=== PATIENT | female | born 1940 | race Caucasian/White ===

== ENCOUNTER 2017-05-20 17:17 | Inpatient (IN) | payer OTHER, MEDICAID ==
[~2017-05-20] VITALS: Ht 152.4 cm; Wt 78.6 kg
--- NOTE | 2017-05-20 17:20 | NUR ---
PATIENT TO BED#2
[2017-05-20 17:21] VITALS: BP 215/98
[2017-05-20] MEDS ORDERED: NITROGLYCERIN 2% 1 GM PKT TP ONE (17:30)
[2017-05-20] MEDS ORDERED: NACL 0.9% 1,000 ML IV ONE (17:30)
[2017-05-20] MEDS ORDERED: ASPIRIN 81 MG TAB.CHEW PO ONE (17:30)
--- NOTE | 2017-05-20 17:30 | NUR ---
76/F biba from home for evaluation of chest pain x2 days. Pt also reports having elevated blood pressure for the past few days. Hx HTN, CVA with right sided weakness. Pt describes pain as sharp, 3/10. AOX4, amharic speaking, VSS.
[2017-05-20] MEDS ORDERED: SPIR50TA PO (17:33)
[2017-05-20] MEDS ORDERED: FURO-570 PO (17:35)
[2017-05-20] MEDS ORDERED: SIMV40TA1 PO (17:35)
[2017-05-20] MEDS ORDERED: METF1000 PO (17:37)
[2017-05-20] MEDS ORDERED: INSU100S22 SUBQ (17:39)
[2017-05-20] MEDS ORDERED: ALBU-118 IH (17:40)
[2017-05-20 17:55] LABS: HEMOGLOBIN 11.6 g/dL (12.0-16.0); MEAN CORPUSCULAR HEMOGLOBIN 25 pg (27-31); MEAN CORPUSCULAR HGB CONC 32 g/dL (33-37); MEAN CORPUSCULAR VOLUME 79 fL (80-94); PLATELET COUNT (AUTO) 348 K/uL (140-450); RED BLOOD CELL COUNT(AUTO) 4.58 MIL/uL (4.20-5.40); RED CELL DISTRIBUTION WIDTH 15.3 % (11.6-13.7); WHITE BLOOD COUNT (AUTO) 8.4 K/uL (4.8-10.8)
[2017-05-20 18:15] LABS: EOSINOPHILS % (MANUAL) 2 % (0-4); LYMPHOCYTES % (MANUAL) 23 % (20-46); MONOCYTES % (MANUAL) 5 % (5-12)
[2017-05-20 18:38] LABS: PROTHROMBIN TIME 10.6 secs (10.8-13.4)
[2017-05-20 18:41] LABS: ALBUMIN 3.5 g/dL (3.4-5.0); ANION GAP 9.7 (8-16); ASPARTATE AMINOTRANSFERASE 20 U/L (15-37); CARBON DIOXIDE 29.3 mmol/L (21-32); CHLORIDE 100 mmol/L (98-107); CREATININE 0.8 mg/dL (0.6-1.3); GLUCOSE 269 mg/dL (74-106); SODIUM SERUM 135 mmol/L (136-145); TOTAL BILIRUBIN 0.2 mg/dL (0.0-1.0); UREA NITROGEN, BLOOD 10 mg/dL (7-18)
[2017-05-20] MEDS ORDERED: ONDANSETRON 4 MG/2 ML VIAL IVP PRN (19:10)
[2017-05-20] MEDS: NACL 0.9% 1,000 ML IV SCH (19:10)
[2017-05-20] MEDS ORDERED: DEXTROSE 50% 50 ML SYR IVP PRN (19:10)
[2017-05-20] MEDS ORDERED: ACETAMINOPHEN 325 MG TAB PO PRN (19:10)
--- NOTE | 2017-05-20 19:22 | NUR ---
Pt report given to Leela AUGUSTE. Transfer of care at this time.
--- NOTE | 2017-05-20 20:00 | NUR ---
Patient will be admitted to care of [facility]. Admited to TELE . Will go to room 108A. Belongings list completed. Report to TORIBIO AUGUSTE. IV PATENT AND INFUSING
[2017-05-20 20:04] LABS: FREE T4 (FREE THYROXINE) 1.06 ng/dL (0.76-1.46); MAGNESIUM 1.8 mg/dL (1.8-2.4); PHOSPHORUS 3.6 mg/dL (2.5-4.9); THYROID STIMULATING HORMONE 2.66 uIU/mL (0.34-3.74)
[2017-05-20 20:08] VITALS: BP 155/89
--- NOTE | 2017-05-20 20:08 | NUR ---
RECEIVED PATIENT FROM ER NURSE. PATIENT A&OX4. PATIENT DENIES PAIN. PATIENT IS [place] SPEAKING, PHP ENGINEER REQUIRED. [employer] PHP ENGINEER NUMBER [id number] JUANA TO HELP WITH ADMISSION. PATIENT DENIES CHEST PAIN. TELE BOX IN PLACE. IV SITE PATENT AND INTACT. NO SIGNS OR SYMPTOMS OF ACUTE DISTRESS NOTED. CALL LIGHT WITHIN REACH. AT BEDSIDE WILL CONTINUE TO MONITOR.
--- NOTE | 2017-05-20 20:32 | NUR ---
DR VIERA IN TO SEE PATIENT.
[2017-05-20] MEDS ORDERED: HYDROcodone/APAP 5/325 MG 1 TAB TAB PO PRN (21:05)
[2017-05-20] MEDS ORDERED: KETOROLAC 15 MG/ML VIAL IVP PRN (21:05)
[2017-05-20] MEDS: INSULIN DETEMIR 100 UNITS/ML 10 ML VIAL SUBQ SCH (21:24)
[2017-05-20] MEDS: DOCUSATE SODIUM 100 MG GELCAP PO SCH (21:26)
[2017-05-20] MEDS: METOPROLOL 25 MG TAB PO SCH (21:26)
[2017-05-20] MEDS: BLOOD GLUCOSE MONITORING 1 DEV DEV FS SCH (21:30)
--- NOTE | 2017-05-20 21:30 | NUR ---
PM MEDS GIVEN WITH EDUCATION. PATIENT VERBALIZED UNDERSTANDING. CALL LIGHT WITHIN REACH. WILL CONTINUE TO MONITOR.
[2017-05-21] VITALS (8 sets, daily range): BP systolic 123–197; BP diastolic 62–94
--- NOTE | 2017-05-21 03:14 | NUR ---
RECEIVED CRITICAL TOPONIN 0.[address] BROWN. WAITING SLOT FLOOR SUPERVISOR BACK FOR FURTHER INSTRUCTION.
--- NOTE | 2017-05-21 03:41 | NUR ---
PAGED DR BROWN FOR CRITICAL LAB. WAITING QUARTER DOPER BACK.
--- NOTE | 2017-05-21 03:59 | NUR ---
INFORMED DR. BROWN ABOUT CRITICAL TROPONIN.
--- NOTE | 2017-05-21 04:30 | NUR ---
INFORMED RESIDENT OF HIGH BP. NO SIGNS OR SYMPTOMS OF ACUTE DISTRESS NOTED. CALL LIGHT WITHIN REACH. WILL CONTINUE TO MONITOR.
[2017-05-21 06:44] LABS: BASOPHILS # (AUTO) 0.1 K/uL (0.00-0.22); BASOPHILS % (AUTO) 1.3 % (0.0-2.0); EOSINOPHILS # (AUTO) 0.2 K/uL (0-0.4); EOSINOPHILS % (AUTO) 2.7 % (0.0-4.0); HEMATOCRIT 35.3 % (36-48); LYMPHOCYTES % (AUTO) 27.8 % (20.5-51.1); MEAN CORPUSCULAR HEMOGLOBIN 25 pg (27-31); MEAN CORPUSCULAR HGB CONC 31 g/dL (33-37); MEAN CORPUSCULAR VOLUME 80 fL (80-94); MONOCYTES # (AUTO) 0.8 K/uL (0.8-1.0); MONOCYTES % (AUTO) 10.9 % (1.7-9.3); NEUTROPHILS # (AUTO) 4.1 K/uL (1.8-7.7); NEUTROPHILS % (AUTO) 57.3 % (42.2-75.2); PLATELET COUNT (AUTO) 358 K/uL (140-450); RED BLOOD CELL COUNT(AUTO) 4.44 MIL/uL (4.20-5.40); RED CELL DISTRIBUTION WIDTH 14.9 % (11.6-13.7); WHITE BLOOD COUNT (AUTO) 7.2 K/uL (4.8-10.8)
[2017-05-21] MEDS: BLOOD GLUCOSE MONITORING 1 DEV DEV FS SCH ×4 (06:56→20:23)
[2017-05-21 07:00] LABS: ANION GAP 11.2 (8-16); CARBON DIOXIDE 27.5 mmol/L (21-32); CHLORIDE 102 mmol/L (98-107); CREATININE 0.7 mg/dL (0.6-1.3); GLUCOSE 160 mg/dL (74-106); POTASSIUM 3.7 mmol/L (3.5-5.1); SODIUM SERUM 137 mmol/L (136-145); UREA NITROGEN, BLOOD 10 mg/dL (7-18)
[2017-05-21 07:08] LABS: CHOL/HDL RATIO 7.3 (1-4.5); MAGNESIUM 1.9 mg/dL (1.8-2.4); PHOSPHORUS 3.9 mg/dL (2.5-4.9)
--- NOTE | 2017-05-21 07:18 | NUR ---
ENDORSED PLAN OF CARE TO AM RN. PATIENT IN STABLE CONDITION.
--- NOTE | 2017-05-21 08:00 | NUR ---
RECEIVED PATIENT ALERT AWAKE ORIENTED X 4, NOT IN ANY DISTRESS NOTED, DENIES CHEST PAIN. INITIAL ASSESSMENT INITIATED. BS CHECKED 121. BP 197/94, PATIENT ASYMPTOMATIC. MD AWARE. NEEDS ATTENDED, CALL LIGHT WITHIN REACH. WILL CONTINUE TO MONITOR.
[2017-05-21] MEDS: SIMVASTATIN 40 MG TAB PO SCH (08:45)
[2017-05-21] MEDS: SPIRONOLACTONE 50 MG TAB PO SCH (08:46)
[2017-05-21] MEDS: PANTOPRAZOLE 40 MG TABEC PO SCH (08:46)
[2017-05-21] MEDS: ECOTRIN 81 MG TABEC PO SCH (08:46)
[2017-05-21] MEDS: ASCORBIC ACID 500 MG TAB PO SCH (08:46)
[2017-05-21] MEDS: FERROUS SULFATE 325 MG TABEC PO SCH (08:47)
[2017-05-21] MEDS: METOPROLOL 25 MG TAB PO SCH ×2 (08:47→20:30)
[2017-05-21] MEDS: FUROSEMIDE 40 MG TAB PO SCH (08:47)
[2017-05-21] MEDS: DOCUSATE SODIUM 100 MG GELCAP PO SCH ×2 (08:47→20:30)
[2017-05-21] MEDS ORDERED: metFORMIN 500 MG TAB PO SCH (09:00)
[2017-05-21] MEDS ORDERED: LISINOPRIL 5 MG TAB PO SCH (09:00)
[2017-05-21] MEDS ORDERED: ATORVASTATIN 20 MG TAB PO SCH (09:00)
--- NOTE | 2017-05-21 09:05 | NUR ---
PATIENT HAS BEEN SCREENED AND CATEGORIZED MODERATE NUTRITION RISK. PATIENT WILL BE SEEN WITHIN 3-5 DAYS OF ADMISSION. 05/22/17-05/24/[address]
[2017-05-21] MEDS: INSULIN LISPRO SLIDING SCALE 100 UNITS/ML VIAL SUBQ PRN ×3 (12:04→21:13)
--- NOTE | 2017-05-21 12:53 | NUR ---
CHECKED BP 196/91 PATIENT ASYMPTOMATIC, NOTIFIED DR. ALFONSO AND MADE AWARE.
[2017-05-21] MEDS ORDERED: hydrALAZINE 20 MG/ML VIAL IVP PRN (12:55)
--- NOTE | 2017-05-21 14:00 | NUR ---
BP CHECKED 123/62, HR-76, O2 SAT ON RA 96. PATIENT VERBALIZED THAT SHE FEELS DIZZY, VITALS STABLE. PAGED DR. ALFONSO.
--- NOTE | 2017-05-21 16:30 | NUR ---
SEEN BY DR. VIERA WITH ORDERS AND CARRIED OUT.
[2017-05-21] MEDS: NACL 0.9% 1,000 ML IV SCH (16:54)
--- NOTE | 2017-05-21 17:50 | NUR ---
RECEIVED REPORT FROM MOLINA SOLORIO, PATIENT RESTING IN BED, AT BEDSIDE. NO S/S OF DISTRESS NOTED, CALL LIGHT WITHIN REACH, SAFETY MEASURE ENSURED, WILL CONTINUE TO MONITOR.
[2017-05-21] MEDS: metFORMIN 500 MG TAB PO SCH (17:59)
[2017-05-21] MEDS: INSULIN DETEMIR 100 UNITS/ML 10 ML VIAL SUBQ SCH (20:32)
--- NOTE | 2017-05-21 20:35 | NUR ---
PATIENT SAID SHE FELT NAUSEOUS, ZOFRAN GIVEN ORDERED. WILL CONTINUE TO MONITOR.
--- NOTE | 2017-05-21 22:10 | NUR ---
PATIENT IS SLEEPING, NO S/S OF DISTRESS NOTED, RESPIRATION EVEN AND UNLABORED, CALL LIGHT WITHIN REACH, SAFETY MEASURE ENSURED, WILL CONTINUE TO MONITOR.
[2017-05-22] VITALS: BP 133/65
[2017-05-22] MEDS ORDERED: BENZOCAINE/MENTHOL 1 LOZ MM PRN (01:05)
--- NOTE | 2017-05-22 01:13 | NUR ---
PATIENT SAID SHE HAD SORE THROAT, CEPACOL ADMINISTERED ORDERED. WILL CONTINUE TO MONITOR.
--- NOTE | 2017-05-22 03:33 | NUR ---
PATIENT IS SLEEPING, NO S/S OF DISTRESS NOTED, RESPIRATION EVEN AND UNLABORED, CALL LIGHT WITHIN REACH, SAFETY MEASURE ENSURED, WILL CONTINUE TO MONITOR.
[2017-05-22 04:00] VITALS: BP 130/70
--- NOTE | 2017-05-22 05:41 | NUR ---
PATIENT RESTING IN BED, NO S/S OF DISTRESS NOTED, RESPIRATION EVEN AND UNLABORED, CALL LIGHT WITHIN REACH, SAFETY MEASURE ENSURED, WILL CONTINUE TO MONITOR.
--- NOTE | 2017-05-22 07:05 | NUR ---
ENDORSED PLAN OF CARE TO DAY SHIFT RN, PATIENT IS IN STABLE CONDITION.
--- NOTE | 2017-05-22 07:06 | NUR ---
RECEIVED REPORT FROM ANGLE DOZER OPERATOR RN. PATIENT IS AAOX4, RESPIRATORY EFFORT EVEN AND UNLABORED. ON ROOM AIR. NO SIGNS AND SYMPTOMS OF DISTRESS NOTED AT THIS TIME. PATIENT HAS IV TO LEFT AC 20G. INFUSING WELL. SITE IS CLEAN, DRY, PATENT AND INTACT. DISCUSSED PLAN OF CARE WITH PATIENT AND SHE VERBALIZED UNDERSTANDING. IS AT THE BEDSIDE. BED IN LOWEST POSITION, SIDE RAILS UP X3, CALL LIGHT PLACED WITHIN REACH. WILL CONTINUE TO MONITOR.
[2017-05-22] MEDS: BLOOD GLUCOSE MONITORING 1 DEV DEV FS SCH ×4 (07:15→20:29)
[2017-05-22 07:26] LABS: CARBON DIOXIDE 28.1 mmol/L (21-32); CHLORIDE 100 mmol/L (98-107); CREATININE 1.1 mg/dL (0.6-1.3); GLUCOSE 127 mg/dL (74-106); POTASSIUM 4.1 mmol/L (3.5-5.1); SODIUM SERUM 139 mmol/L (136-145); UREA NITROGEN, BLOOD 17 mg/dL (7-18)
[2017-05-22 07:35] LABS: BASOPHILS # (AUTO) 0.2 K/uL (0.00-0.22); BASOPHILS % (AUTO) 1.9 % (0.0-2.0); EOSINOPHILS # (AUTO) 0.1 K/uL (0-0.4); EOSINOPHILS % (AUTO) 0.6 % (0.0-4.0); HEMATOCRIT 34.9 % (36-48); HEMOGLOBIN 11.3 g/dL (12.0-16.0); LYMPHOCYTES # (AUTO) 2.6 K/uL (2.5-16.5); LYMPHOCYTES % (AUTO) 22.1 % (20.5-51.1); MEAN CORPUSCULAR HEMOGLOBIN 26 pg (27-31); MEAN CORPUSCULAR HGB CONC 32 g/dL (33-37); MEAN CORPUSCULAR VOLUME 80 fL (80-94); MONOCYTES # (AUTO) 1.2 K/uL (0.8-1.0); MONOCYTES % (AUTO) 9.9 % (1.7-9.3); NEUTROPHILS # (AUTO) 7.7 K/uL (1.8-7.7); NEUTROPHILS % (AUTO) 65.5 % (42.2-75.2); PLATELET COUNT (AUTO) 397 K/uL (140-450); RED BLOOD CELL COUNT(AUTO) 4.36 MIL/uL (4.20-5.40); RED CELL DISTRIBUTION WIDTH 14.8 % (11.6-13.7); WHITE BLOOD COUNT (AUTO) 11.8 K/uL (4.8-10.8)
[2017-05-22 08:00] VITALS: BP 129/60
[2017-05-22] MEDS: FUROSEMIDE 40 MG TAB PO SCH (08:39)
[2017-05-22] MEDS: DOCUSATE SODIUM 100 MG GELCAP PO SCH ×2 (08:40→20:26)
[2017-05-22] MEDS: ECOTRIN 81 MG TABEC PO SCH (08:40)
[2017-05-22] MEDS: SIMVASTATIN 40 MG TAB PO SCH (08:40)
[2017-05-22] MEDS: FERROUS SULFATE 325 MG TABEC PO SCH (08:40)
[2017-05-22] MEDS: PANTOPRAZOLE 40 MG TABEC PO SCH (08:41)
[2017-05-22] MEDS: SPIRONOLACTONE 50 MG TAB PO SCH (08:41)
[2017-05-22] MEDS: ASCORBIC ACID 500 MG TAB PO SCH (08:41)
[2017-05-22] MEDS: metFORMIN 500 MG TAB PO SCH ×2 (08:41→17:34)
[2017-05-22] MEDS: METOPROLOL 25 MG TAB PO SCH ×2 (08:42→20:26)
[2017-05-22] MEDS ORDERED: LISINOPRIL 10 MG TAB PO SCH (09:00)
[2017-05-22 09:15] LABS: FOLIC ACID 15.6 ng/mL (>3.0)
--- NOTE | 2017-05-22 10:40 | NUR ---
PATIENT C/O DIFFICULTY BREATHING. OSMIN EMERGENCY DOCTOR AT BEDSIDE, WELL DR HAWKINS. OSMIN PLACED NC AT 2L ON PATIENT. VITALS ARE BP: 152/70, HR 96, 02 99% ON 2L NC, RR: 20. PATIENT DENIES CHEST PAIN. STATES SHE FEELS BETTER WITH THE OXYGEN ON. ALL MORNING MEDS HAVE BEEN GIVEN ALREADY. WILL CONTINUE TO MONITOR.
[2017-05-22] MEDS: NACL 0.9% 1,000 ML IV SCH (11:10)
[2017-05-22 12:00] VITALS: BP 117/53
[2017-05-22] MEDS: INSULIN LISPRO SLIDING SCALE 100 UNITS/ML VIAL SUBQ PRN ×2 (12:10→17:37)
[2017-05-22 15:06] LABS: BASOPHILS # (AUTO) 0.1 K/uL (0.00-0.22); EOSINOPHILS # (AUTO) 0.1 K/uL (0-0.4); EOSINOPHILS % (AUTO) 0.8 % (0.0-4.0); HEMATOCRIT 34.1 % (36-48); HEMOGLOBIN 10.9 g/dL (12.0-16.0); LYMPHOCYTES # (AUTO) 2.2 K/uL (2.5-16.5); LYMPHOCYTES % (AUTO) 17.4 % (20.5-51.1); MEAN CORPUSCULAR HEMOGLOBIN 25 pg (27-31); MEAN CORPUSCULAR HGB CONC 32 g/dL (33-37); MEAN CORPUSCULAR VOLUME 79 fL (80-94); MONOCYTES # (AUTO) 1.3 K/uL (0.8-1.0); MONOCYTES % (AUTO) 10.8 % (1.7-9.3); NEUTROPHILS # (AUTO) 8.7 K/uL (1.8-7.7); PLATELET COUNT (AUTO) 383 K/uL (140-450); RED BLOOD CELL COUNT(AUTO) 4.29 MIL/uL (4.20-5.40); RED CELL DISTRIBUTION WIDTH 14.5 % (11.6-13.7); WHITE BLOOD COUNT (AUTO) 12.4 K/uL (4.8-10.8)
[2017-05-22 16:00] VITALS: BP 107/70
--- NOTE | 2017-05-22 19:10 | NUR ---
ENDORSED PATIENT TO POLLUTION CONTROL TECHNICIAN RN FOR CONTINUITY OF CARE. PATIENT IN STABLE CONDITION.
--- NOTE | 2017-05-22 19:15 | NUR ---
RECEIVED REPORT FROM DAY RN, PATIENT WAS SLEEPING IN BED, EASY TO AROUSE, NO S/S OF DISTRESS NOTED, RESPIRATION EVEN AND UNLABORED, IV PATENT AND INTACT, FLUSHED WITH 10CC NS. PLAN OF CARE DISCUSSED, PATIENT VERBALIZED UNDERSTANDING, CALL LIGHT WITHIN REACH, SAFETY MEASURE ENSURED, WILL CONTINUE TO MONITOR.
[2017-05-22 20:00] VITALS: BP 112/45
[2017-05-22] MEDS: INSULIN DETEMIR 100 UNITS/ML 10 ML VIAL SUBQ SCH ×2 (20:30→20:37)
--- NOTE | 2017-05-22 20:38 | NUR ---
PATIENT REFUSED LEVEMIR 60UNITS, AND STATED," THE OTHER NURSE ALREADY GAVE ME INSULIN." INFORMED THE PATIENT THE DAY SHIFT NURSE GAVE HER HUMALOG, WHICH IS SHORT ACTING INSULIN, LEVEMIR IS LONG ACTING INSULIN. EDUCATED THE PATIENT OF THE COMPLICATIONS OF NOT RECEIVING INSULIN, PATIENT VERBALIZED UNDERSTANDING, AND STILL REFUSED THE LEVEMIR.
--- NOTE | 2017-05-22 22:18 | NUR ---
PATIENT'S IS HERE TO PICK THE PATIENT UP, PATIENT IS GOING TO LEAVE AMA, DR. BROWN HAS EXPLAINED TO PATIENT THE BENEFITS OF CONTINUED TREATMENT AND RISKS AND CONSEQUENCES OF LEAVING THE HOSPITAL AT THIS TIME. PATIENT STILL WANT TO LEAVE AGAINST DR. BROWN ADVICES.
--- NOTE | 2017-05-22 22:24 | NUR ---
PATIENT LEFT VIA WHEELCHAIR IN STABLE CONDITION.
== END 2017-05-22 22:24 | disposition left against medical advice (07) | DRG 281 ==
LOC: MED 17:17 → MTU 19:05
PROVIDERS: ADMIT Family Medicine Sports Medicine; ATTEND Family Medicine Sports Medicine
DX: I21.A1 Myocardial infarction type 2 (principal); D68.59 Other primary thrombophilia; E11.51 Type 2 diabetes mellitus with diabetic peripheral angiopathy without gangrene; E11.65 Type 2 diabetes mellitus with hyperglycemia; E87.1 Hypo-osmolality and hyponatremia; M94.0 Chondrocostal junction syndrome [Tietze]; K21.9 Gastro-esophageal reflux disease without esophagitis; I10 Essential (primary) hypertension; J45.909 Unspecified asthma, uncomplicated; D50.9 Iron deficiency anemia, unspecified; E78.2 Mixed hyperlipidemia; I16.0 Hypertensive urgency; E66.9 Obesity, unspecified; Z68.34 Body mass index [BMI] 34.0-34.9, adult; Z86.73 Personal history of transient ischemic attack (TIA), and cerebral infarction without residual deficits; Z88.0 Allergy status to penicillin; Z79.84 Long term (current) use of oral hypoglycemic drugs; Z79.4 Long term (current) use of insulin
CPT/HCPCS: 36415; 71010; 80048; 80053; 82607; 82728; 82746; 82948; 83036; 83540; 83735; 83880; 84100; 84439; 84443; 84484; 85025; 85045; 85610; 85730; 87081; 93005; 93925; 93970; 93976; 99285; J0360; J1815; J2405; J7030; Q0092